=== PATIENT | female | born 1990 | race African-American/Black ===

== ENCOUNTER 2019-02-17 04:17 | Emergency (ER) | payer MEDICAID, OTHER ==
[~2019-02-17] VITALS: Ht 160 cm; Wt 91.0 kg
[2019-02-17 06:30] VITALS: BP 136/79
[2019-02-17] MEDS ORDERED: ACETAMINOPHEN 325MG TABLET PO ONE (07:15)
== END 2019-02-17 09:28 | disposition home or self-care (01) ==
LOC: ER 04:17
DX: M79.18 Myalgia, other site (principal); Z98.890 Other specified postprocedural states
CPT/HCPCS: 73590; 81025; 99283